=== PATIENT | male | born 1945 | race Two or more races ===

== ENCOUNTER → 2019-11-11 | Outpatient (CLI) | payer MEDICARE, MEDICAID, OTHER | END | disposition home or self-care (01) | LOC: MSC 14:10 | PROVIDERS: ATTEND Anesthesiology | DX: G25.81 Restless legs syndrome (principal); M54.16 Radiculopathy, lumbar region; M62.830 Muscle spasm of back; M40.299 Other kyphosis, site unspecified; M79.606 Pain in leg, unspecified; M54.2 Cervicalgia ==